=== PATIENT | male | born 1945 | race Asian ===

== ENCOUNTER 2017-10-16 18:49 | Inpatient (IN) | payer MEDICAID, MEDICARE, OTHER ==
[~2017-10-16] VITALS: Ht 167.6 cm; Wt 55.3 kg
[~2017-10-16 18:49] MED LIST: ASPI-1159 PO; CLOP75TA33 PO; METO-385 PO; ROSU10TA PO
[2017-10-16 21:33] LABS: BASOPHILS % 0.2 % (0.0-2.0); EOSINOPHILS % 0.2 % (0.0-5.0); HEMATOCRIT. 43.4 % (42.0-52.0); HEMOGLOBIN. 14.6 g/dL (14.0-18.0); LYMPHOCYTES % 14.1 % (20.0-50.0); MEAN CORPUSCULAR HEMOGLOBIN 29.4 pg (28.0-32.0); MEAN CORPUSCULAR VOLUME 87.2 fL (80.0-94.0); MEAN PLATELET VOLUME 8.7 fl (7.4-10.4); MONOCYTES % 11.2 % (2.0-8.0); NEUTROPHILS % 74.3 % (40.0-76.0); PLATELET 218 x1000/uL (130-400); RED BLOOD CELL COUNT 4.97 mill/uL (4.7-6.1); RED CELL DISTRIBUTION WIDTH 13.4 % (11.6-14.6)
[2017-10-16 21:39] LABS: CHLORIDE 98 mEq/L (98-107)
[2017-10-16 21:42] LABS: PROTHROMBIN TIME 10.4 sec (9.1-11.1)
[2017-10-16 22:44] LABS: CLARITY URINE CLEAR (CLEAR); COLOR URINE YELLOW (YELLOW); KETONES URINE TRACE (NEGATIVE); LEUKOCYTE ESTERASE URINE NEGATIVE (NEGATIVE); NITRITE URINE NEGATIVE (NEGATIVE); OCCULT BLOOD URINE 1+ (NEGATIVE); PROTEIN URINE 1+ (NEGATIVE)
[2017-10-16] MEDS ORDERED: ASPIRIN 325MG EC TABLET PO NR (22:45)
[2017-10-16] MEDS ORDERED: MORPHINE SULFATE 4 MG/ML CPJ (NOT FOR IM USE) IV NR (22:45)
[2017-10-16] MEDS ORDERED: ENOXAPARIN 60MG/0.6ML SYR SUBCUT NR (23:00)
[2017-10-17] MEDS: DIPHENHYDRAMINE HCL/ZINC ACET 28 GM CREAM TOP SCH
[2017-10-17 03:45] VITALS: BP 118/58
[2017-10-17 04:29] VITALS: BP 118/58
[2017-10-17] MEDS ORDERED: ONDANSETRON HCL 4MG/2ML INJ IV PRN (06:00)
[2017-10-17] MEDS ORDERED: MAGNESIUM/ALUMINUM HYDROXIDE/SIMETHICONE 30ML UDC PO PRN (06:00)
[2017-10-17] MEDS ORDERED: GUAIFENESIN 200MG/10ML SUGAR FREE UDC PO PRN (06:00)
[2017-10-17] MEDS ORDERED: DIPHENHYDRAMINE 50MG/ML VIAL IV PRN (06:00)
[2017-10-17] MEDS ORDERED: LORAZEPAM 2MG/ML CPJ IV PRN (06:00)
[2017-10-17] MEDS ORDERED: CLONIDINE 0.1MG TABLET PO PRN (06:00)
[2017-10-17] MEDS ORDERED: IPRATROPIUM/ALBUTEROL 0.5-3(2.5)MG/3ML NEB INH PRN (06:00)
[2017-10-17] MEDS ORDERED: DOCUSATE SODIUM 100MG CAPSULE PO PRN (06:00)
[2017-10-17] MEDS ORDERED: NA PHOS,M-B/NA PHOS,DI-BA ENEMA 118ML PR PRN (06:00)
[2017-10-17] MEDS ORDERED: ACETAMINOPHEN 325MG TABLET PO PRN (06:00)
[2017-10-17] MEDS: MORPHINE SULFATE 4 MG/ML CPJ (NOT FOR IM USE) IV PRN ×4 (06:24→21:14)
[2017-10-17 08:00] VITALS: BP 149/62
[2017-10-17] MEDS ORDERED: ASPIRIN 81MG EC TABLET PO SCH (09:00)
[2017-10-17 09:03] LABS: CHLORIDE 101 mEq/L (98-107)
[2017-10-17] MEDS ORDERED: INFLUENZA VIRUS VACCINE 0.5ML SYR IM ONE (10:00)
[2017-10-17 12:00] VITALS: BP 146/56
[2017-10-17 16:00] VITALS: BP 138/46
[2017-10-17 16:07] LABS: T4 FREE 1.3 ng/dL (0.76-1.46)
[2017-10-17 16:08] LABS: CREATINE KINASE MB FRACTION 4.9 ng/mL (0.5-3.6)
[2017-10-17 20:00] VITALS: BP 136/50
[2017-10-17] MEDS ORDERED: CLOPIDOGREL 75MG TABLET PO NR ×2 (20:30→21:45)
[2017-10-17] MEDS: ATORVASTATIN CALCIUM 20MG TABLET PO SCH (21:12)
[2017-10-17] MEDS: CARVEDILOL 3.125 MG TABLET PO SCH (21:13)
[2017-10-17] MEDS: HYDROCODONE/ACETAMINOPHEN 5/325MG TABLET PO PRN (21:14)
[2017-10-17] MEDS ORDERED: ENOXAPARIN 40MG/0.4ML SYR SUBCUT SCH (23:00)
[2017-10-18] VITALS: BP 160/60
[2017-10-18 00:55] LABS: CREATINE KINASE MB FRACTION 3.2 ng/mL (0.5-3.6)
[2017-10-18] MEDS: MORPHINE SULFATE 4 MG/ML CPJ (NOT FOR IM USE) IV PRN (03:00)
[2017-10-18 04:00] VITALS: BP 131/61
[2017-10-18 05:12] LABS: BASOPHILS % 0.4 % (0.0-2.0); EOSINOPHILS % 0.6 % (0.0-5.0); HEMATOCRIT. 41.5 % (42.0-52.0); HEMOGLOBIN. 14.2 g/dL (14.0-18.0); MEAN CORPUSCULAR HEMOGLOBIN 29.9 pg (28.0-32.0); MEAN CORPUSCULAR VOLUME 87.3 fL (80.0-94.0); MEAN PLATELET VOLUME 9.1 fl (7.4-10.4); MONOCYTES % 12.6 % (2.0-8.0); NEUTROPHILS % 59.4 % (40.0-76.0); PLATELET 204 x1000/uL (130-400); RED BLOOD CELL COUNT 4.76 mill/uL (4.7-6.1); RED CELL DISTRIBUTION WIDTH 13.3 % (11.6-14.6)
[2017-10-18 06:31] LABS: CHLORIDE 99 mEq/L (98-107)
[2017-10-18 06:44] LABS: CREATINE KINASE 839 IU/L (39-308); LDL CHOLESTEROL 71 mg/dL (5-100)
[2017-10-18 06:45] LABS: HDL CHOLESTEROL 51 mg/dL (40-59)
[2017-10-18 06:48] LABS: CREATINE KINASE MB FRACTION 2.9 ng/mL (0.5-3.6)
[2017-10-18] MEDS: HYDROCODONE/ACETAMINOPHEN 5/325MG TABLET PO PRN ×4 (07:40→22:11)
[2017-10-18 08:00] VITALS: BP 149/62
[2017-10-18] MEDS ORDERED: ASPIRIN 81MG TABLET PO SCH (09:00)
[2017-10-18] MEDS ORDERED: CLOPIDOGREL 75MG TABLET PO SCH (09:00)
[2017-10-18] MEDS: CARVEDILOL 3.125 MG TABLET PO SCH ×2 (10:08→20:44)
[2017-10-18] MEDS: DIPHENHYDRAMINE HCL/ZINC ACET 28 GM CREAM TOP SCH ×2 (10:08→17:51)
[2017-10-18 12:00] VITALS: BP 135/50
[2017-10-18] MEDS: PIPERACILLIN/TAZ 3.375G PREMIX 50 ML IV SCH ×3 (12:37→23:53)
[2017-10-18] MEDS: VANCOMYCIN 1 G PREMIX 200 ML IV SCH (13:26)
[2017-10-18 16:00] VITALS: BP 121/41
[2017-10-18 20:00] VITALS: BP 147/60
[2017-10-18] MEDS: ATORVASTATIN CALCIUM 20MG TABLET PO SCH (20:43)
[2017-10-19] VITALS: BP 126/47
[2017-10-19 04:00] VITALS: BP 127/46
[2017-10-19] MEDS: HYDROCODONE/ACETAMINOPHEN 5/325MG TABLET PO PRN ×3 (04:38→16:50)
[2017-10-19] MEDS: PIPERACILLIN/TAZ 3.375G PREMIX 50 ML IV SCH ×3 (04:43→19:59)
[2017-10-19] MEDS: VANCOMYCIN 1 G PREMIX 200 ML IV SCH ×2 (05:24→23:42)
[2017-10-19 08:00] VITALS: BP 148/53
[2017-10-19] MEDS: DIPHENHYDRAMINE HCL/ZINC ACET 28 GM CREAM TOP SCH ×2 (09:19→17:00)
[2017-10-19] MEDS: CARVEDILOL 3.125 MG TABLET PO SCH ×2 (09:20→20:47)
[2017-10-19] MEDS ORDERED: IPRATROPIUM/ALBUTEROL 0.5-3(2.5)MG/3ML NEB HHN PRN (11:15)
[2017-10-19 12:00] VITALS: BP 135/53
[2017-10-19] MEDS: IPRATROPIUM/ALBUTEROL 0.5-3(2.5)MG/3ML NEB HHN SCH ×2 (14:40→21:15)
[2017-10-19 16:00] VITALS: BP 145/51
[2017-10-19 20:00] VITALS: BP 164/65
[2017-10-19] MEDS: ATORVASTATIN CALCIUM 20MG TABLET PO SCH (20:47)
[2017-10-20] VITALS: BP 124/55
[2017-10-20] MEDS: PIPERACILLIN/TAZ 3.375G PREMIX 50 ML IV SCH ×4 (01:11→22:06)
[2017-10-20] MEDS: IPRATROPIUM/ALBUTEROL 0.5-3(2.5)MG/3ML NEB HHN SCH ×5 (01:31→21:23)
[2017-10-20 04:00] VITALS: BP_SYST 125; BP_SYST 132; BP_DIAS 52; BP_DIAS 53
[2017-10-20 08:00] VITALS: BP 121/63
[2017-10-20] MEDS: CARVEDILOL 3.125 MG TABLET PO SCH ×2 (09:52→21:02)
[2017-10-20] MEDS: DIPHENHYDRAMINE HCL/ZINC ACET 28 GM CREAM TOP SCH ×2 (09:53→20:10)
[2017-10-20 12:00] VITALS: BP 137/64
[2017-10-20 16:00] VITALS: BP 190/68
[2017-10-20 20:00] VITALS: BP 148/56
[2017-10-20] MEDS: VANCOMYCIN 1 G PREMIX 200 ML IV SCH (20:10)
[2017-10-20] MEDS: ATORVASTATIN CALCIUM 20MG TABLET PO SCH (21:02)
[2017-10-21] VITALS: BP 145/35
[2017-10-21] MEDS: PIPERACILLIN/TAZ 3.375G PREMIX 50 ML IV SCH ×5 (00:35→23:55)
[2017-10-21 04:00] VITALS: BP 133/45
[2017-10-21] MEDS: IPRATROPIUM/ALBUTEROL 0.5-3(2.5)MG/3ML NEB HHN SCH ×4 (05:07→20:50)
[2017-10-21 06:32] LABS: CHLORIDE 103 mEq/L (98-107)
[2017-10-21 08:00] VITALS: BP 155/61
[2017-10-21] MEDS: CARVEDILOL 3.125 MG TABLET PO SCH ×2 (09:40→20:41)
[2017-10-21] MEDS: DIPHENHYDRAMINE HCL/ZINC ACET 28 GM CREAM TOP SCH ×2 (09:40→18:07)
[2017-10-21] MEDS: VANCOMYCIN 1 G PREMIX 200 ML IV SCH (12:54)
[2017-10-21 16:00] VITALS: BP 164/70
[2017-10-21 20:00] VITALS: BP 132/46
[2017-10-21] MEDS: ATORVASTATIN CALCIUM 20MG TABLET PO SCH (20:41)
[2017-10-21] MEDS: DICLOFENAC SODIUM 75MG DR (EC) TABLET PO SCH (20:41)
[2017-10-22] VITALS: BP 126/45
[2017-10-22] MEDS: IPRATROPIUM/ALBUTEROL 0.5-3(2.5)MG/3ML NEB HHN SCH ×2 (02:13→07:48)
[2017-10-22 04:00] VITALS: BP 116/49
[2017-10-22] MEDS: PIPERACILLIN/TAZ 3.375G PREMIX 50 ML IV SCH ×2 (05:19→12:20)
[2017-10-22] MEDS: VANCOMYCIN 1 G PREMIX 200 ML IV SCH (06:20)
[2017-10-22 08:00] VITALS: BP 133/57
[2017-10-22] MEDS: DICLOFENAC SODIUM 75MG DR (EC) TABLET PO SCH (08:35)
[2017-10-22] MEDS: CARVEDILOL 3.125 MG TABLET PO SCH (08:35)
[2017-10-22] MEDS: DIPHENHYDRAMINE HCL/ZINC ACET 28 GM CREAM TOP SCH (08:36)
[2017-10-22 09:06] LABS: COMPLEMENT C3 111 mg/dL (82-167)
[2017-10-22 11:34] VITALS: BP 144/59
[2017-10-22 12:00] VITALS: BP 144/59
[2017-10-22 17:06] LABS: ANTI-NUCLEAR ANTIBODIES DIRECT Negative (Negative)
[2017-10-24 09:06] LABS: ANTI-MYELOPEROXIDASE AB < 9.0 U/mL (0.0-9.0); ANTI-PROTEINASE 3 ABS < 3.5 U/mL (0.0-3.5)
[2017-10-24 14:18] LABS: ATYPICAL P-ANCA <1:20 titer (Neg:<1:20); CYTOPLASMIC C-ANCA <1:20 titer (Neg:<1:20); PERINUCLEAR P-ANCA <1:20 titer (Neg:<1:20)
== END 2017-10-22 13:56 | disposition home or self-care (01) | DRG 553 ==
LOC: ER 20:38 → 5WST 10-17 01:36 → ENRESERV 10-17 02:19
PROVIDERS: ADMIT Internal Medicine; ATTEND Internal Medicine
PROC: 0S9C3ZZ Drainage of Right Knee Joint, Percutaneous Approach (ICD-10-PCS; principal; 2017-10-19)
DX: M11.861 Other specified crystal arthropathies, right knee (principal); I21.4 Non-ST elevation (NSTEMI) myocardial infarction; I73.9 Peripheral vascular disease, unspecified; I25.10 Atherosclerotic heart disease of native coronary artery without angina pectoris; Z95.1 Presence of aortocoronary bypass graft; E78.5 Hyperlipidemia, unspecified; I11.0 Hypertensive heart disease with heart failure; I50.9 Heart failure, unspecified; J44.9 Chronic obstructive pulmonary disease, unspecified; M17.11 Unilateral primary osteoarthritis, right knee; K59.00 Constipation, unspecified; F41.9 Anxiety disorder, unspecified; M25.462 Effusion, left knee; M25.461 Effusion, right knee; Z79.82 Long term (current) use of aspirin; Z95.5 Presence of coronary angioplasty implant and graft; Z79.899 Other long term (current) drug therapy
CPT/HCPCS: 20611; 36415; 71045; 73562; 78582; 80048; 80053; 80061; 80202; 81003; 82550; 82553; 83036; 83520; 83880; 84439; 84443; 84484; 84550; 85025; 85379; 85610; 85651; 86038; 86160; 86256; 86431; 87070; 87205; 89060; 90686; 93005; 93306; 93970; 94640; 96372; 96374; 97116; 97162; 97165; 97530; 99285; A9558; J1200; J1650; J2270; J2543; J3370; J7050; J7620

== ENCOUNTER 2017-12-25 16:20 | Inpatient (IN) | payer MEDICARE ==
[~2017-12-25] VITALS: Ht 157.5 cm; Wt 52.6 kg
[2017-12-25] MEDS ORDERED: CLINDAMYCIN 600 MG in DEXTROSE 5% WATER 50 ML IV ONE (17:45)
[2017-12-25] MEDS ORDERED: DIPHENHYDRAMINE 50MG/ML VIAL IV ONE (18:15)
[2017-12-25 18:17] LABS: CHLORIDE 101 mEq/L (98-107)
[2017-12-25 18:18] LABS: BASOPHILS % 0.4 % (0.0-2.0); EOSINOPHILS % 9.5 % (0.0-5.0); HEMATOCRIT. 42.4 % (42.0-52.0); HEMOGLOBIN. 14.3 g/dL (14.0-18.0); LYMPHOCYTES % 17.5 % (20.0-50.0); MEAN CORPUSCULAR HEMOGLOBIN 29.7 pg (28.0-32.0); MEAN CORPUSCULAR VOLUME 87.8 fL (80.0-94.0); MEAN PLATELET VOLUME 8.6 fl (7.4-10.4); MONOCYTES % 9.3 % (2.0-8.0); NEUTROPHILS % 63.3 % (40.0-76.0); PLATELET 281 x1000/uL (130-400); RED BLOOD CELL COUNT 4.83 mill/uL (4.7-6.1); RED CELL DISTRIBUTION WIDTH 13.1 % (11.6-14.6)
[2017-12-25 18:20] LABS: INR 1.1; PROTHROMBIN TIME 10.6 sec (9.1-11.1)
[2017-12-25 19:33] LABS: CLARITY URINE CLEAR (CLEAR); COLOR URINE AMBER (YELLOW); KETONES URINE 1+ (NEGATIVE); LEUKOCYTE ESTERASE URINE NEGATIVE (NEGATIVE); NITRITE URINE NEGATIVE (NEGATIVE); OCCULT BLOOD URINE NEGATIVE (NEGATIVE); PH URINE 5.5 (4.5-8.0); PROTEIN URINE 1+ (NEGATIVE); SPECIFIC GRAVITY URINE 1.029 (1.005-1.030)
[2017-12-25 19:59] LABS: *COCAINE SCREEN URINE NEGATIVE (NEGATIVE)
[2017-12-25 20:00] LABS: *AMPHETAMINES SCREEN URINE NEGATIVE (NEGATIVE); *BARBITURATES SCREEN URINE NEGATIVE (NEGATIVE); *BENZODIAZEPINES SCREEN URINE NEGATIVE (NEGATIVE); CANNABINOID URINE SCREEN NEGATIVE (NEGATIVE); METHADONE URINE SCREEN NEGATIVE (NEGATIVE); OPIATES URINE SCREEN NEGATIVE (NEGATIVE); PHENCYCLIDINE URINE SCREEN NEGATIVE (NEGATIVE)
[2017-12-25 23:20] VITALS: BP 116/45
[2017-12-26] MEDS ORDERED: CLINDAMYCIN 600 MG in DEXTROSE 5% WATER 50 ML IV SCH (00:15)
[2017-12-26] MEDS: CLINDAMYCIN 600 MG in SODIUM CHLORIDE 0.9% 50 ML IV SCH ×3 (03:46→18:03)
[2017-12-26] MEDS: DIPHENHYDRAMINE 50MG CAPSULE PO PRN ×2 (03:46→15:54)
[2017-12-26 04:00] VITALS: BP 117/46
[2017-12-26 08:00] VITALS: BP 102/41
[2017-12-26] MEDS: METOPROLOL TARTRATE 50MG TABLET PO SCH ×2 (08:23→20:45)
[2017-12-26] MEDS: CLOPIDOGREL 75MG TABLET PO SCH (09:00)
[2017-12-26] MEDS: ASPIRIN 81MG TABLET PO SCH (09:01)
[2017-12-26 12:00] VITALS: BP 115/46
[2017-12-26 15:32] VITALS: BP 106/45
[2017-12-26] MEDS: DIPHENHYDRAMINE HCL/ZINC ACET 28 GM CREAM TOP SCH (18:03)
[2017-12-26 20:00] VITALS: BP 120/50
[2017-12-27] VITALS: BP 117/48
[2017-12-27] MEDS: CLINDAMYCIN 600 MG in SODIUM CHLORIDE 0.9% 50 ML IV SCH ×3 (01:48→17:49)
[2017-12-27 04:00] VITALS: BP 107/49
[2017-12-27 07:52] LABS: BASOPHILS % 0.4 % (0.0-2.0); EOSINOPHILS % 14.8 % (0.0-5.0); HEMATOCRIT. 37.1 % (42.0-52.0); HEMOGLOBIN. 12.6 g/dL (14.0-18.0); LYMPHOCYTES % 21.3 % (20.0-50.0); MEAN CORPUSCULAR HEMOGLOBIN 29.7 pg (28.0-32.0); MEAN CORPUSCULAR VOLUME 87.5 fL (80.0-94.0); MEAN PLATELET VOLUME 8.7 fl (7.4-10.4); MONOCYTES % 9.7 % (2.0-8.0); NEUTROPHILS % 53.8 % (40.0-76.0); PLATELET 237 x1000/uL (130-400); RED BLOOD CELL COUNT 4.24 mill/uL (4.7-6.1); RED CELL DISTRIBUTION WIDTH 13.5 % (11.6-14.6)
[2017-12-27 08:00] VITALS: BP 114/47
[2017-12-27 08:02] LABS: CHLORIDE 105 mEq/L (98-107)
[2017-12-27] MEDS: CLOPIDOGREL 75MG TABLET PO SCH (10:00)
[2017-12-27] MEDS: METOPROLOL TARTRATE 50MG TABLET PO SCH ×2 (10:00→20:38)
[2017-12-27] MEDS: ASPIRIN 81MG TABLET PO SCH (10:00)
[2017-12-27] MEDS: HYDROCODONE/ACETAMINOPHEN 5/325MG TABLET PO PRN ×2 (10:01→18:40)
[2017-12-27] MEDS: DIPHENHYDRAMINE HCL/ZINC ACET 28 GM CREAM TOP SCH ×2 (10:04→16:46)
[2017-12-27 12:00] VITALS: BP 113/49
[2017-12-27 20:00] VITALS: BP 142/54
[2017-12-27] MEDS: DIPHENHYDRAMINE 50MG CAPSULE PO PRN (20:38)
[2017-12-27] MEDS: HYDROXYZINE 25MG TABLET PO SCH (22:22)
[2017-12-28] VITALS: BP 124/51
[2017-12-28 04:04] VITALS: BP 123/60
[2017-12-28] MEDS: HYDROXYZINE 25MG TABLET PO SCH ×2 (04:06→11:53)
[2017-12-28] MEDS: DIPHENHYDRAMINE 50MG CAPSULE PO PRN (11:36)
[2017-12-28] MEDS: CLOPIDOGREL 75MG TABLET PO SCH (11:37)
[2017-12-28] MEDS: ASPIRIN 81MG TABLET PO SCH (11:37)
[2017-12-28] MEDS: METOPROLOL TARTRATE 50MG TABLET PO SCH (11:38)
[2017-12-28 13:10] LABS: HIV SCREEN 4G Non Reactive (Non Reactive)
[2017-12-28] MEDS ORDERED: TRIAMCINOLONE ACETONIDE 0.5% OINT 15GM TOP SCH (16:00)
[2017-12-28] MEDS ORDERED: CELECOXIB 200MG CAPSULE PO SCH (16:00)
[2017-12-28] MEDS ORDERED: MINERAL OIL/PETROLATUM,WHITE CREAM 113GM JAR TOP SCH (16:00)
[2017-12-28 18:42] VITALS: BP 144/40
[2017-12-28] MEDS ORDERED: METHYLPREDNISOLONE SOD SUCC 40 MG/ML VIAL IV SCH (22:00)
[2017-12-30 19:09] LABS: ANTI-JO 1 ABS <0.2 AI (0.0-0.9)
[2017-12-31 04:09] LABS: OVA & PARASITE EXAM Final report (.)
[2018-01-01 15:10] LABS: CYC CITRULLINATED PEP IgG/IgA 6 units (0-19)
[2018-01-02 09:06] LABS: ALDOLASE 4.7 U/L (3.3-10.3); GLOMERULAR BASEMENT MEMB AB 4 units (0-20)
[2018-01-02 17:06] LABS: ANA IFA Negative (.)
[2018-01-03 06:24] LABS: COMPLEMENT C3 130 mg/dL (82-167)
[2018-01-03 10:10] LABS: HLA B27 DISEASE ASSOCIATION Negative (.)
== END 2017-12-28 19:00 | disposition home or self-care (01) | DRG 607 ==
LOC: ER 18:04 → 8WST 20:26 → EDBEDREQTM 20:37 → EDBEDREQ 20:37 → ENRESERV 22:21
PROVIDERS: ADMIT Internal Medicine; ATTEND Internal Medicine
DX: R21 Rash and other nonspecific skin eruption (principal); I25.10 Atherosclerotic heart disease of native coronary artery without angina pectoris; D72.1 Eosinophilia; I10 Essential (primary) hypertension; R23.4 Changes in skin texture; R23.3 Spontaneous ecchymoses; M17.0 Bilateral primary osteoarthritis of knee; M19.012 Primary osteoarthritis, left shoulder; M19.011 Primary osteoarthritis, right shoulder; M19.022 Primary osteoarthritis, left elbow; M19.021 Primary osteoarthritis, right elbow; E78.5 Hyperlipidemia, unspecified; Z95.1 Presence of aortocoronary bypass graft
CPT/HCPCS: 36415; 71250; 74176; 80048; 80305; 82085; 82550; 84550; 85651; 86140; 86160; 86200; 86235; 86256; 86431; 86780; 87177; 87186; 87209; 87389; 93005; 96365; 96375; 99285; J1200; J3490; J7050; J7060; Q0163

== ENCOUNTER 2021-07-28 00:30 | Inpatient (IN) | payer MEDICARE, MEDICAID ==
[~2021-07-28] VITALS: Ht 167.6 cm; Wt 61.2 kg
[~2021-07-28 00:30] MED LIST changes: -ASPI-1159 PO; +ASPI-1497 PO; +CARV3.1242 PO; +CRES10 PO; +DOCU-138 PO; +FURO-152 MT; -ROSU10TA PO
[2021-07-28 01:26] LABS: BASOPHILS % 0.5 % (0.0-2.0); EOSINOPHILS % 1.9 % (0.0-5.0); HEMATOCRIT. 37.6 % (42.0-52.0); HEMOGLOBIN. 12.3 g/dL (14.0-18.0); LYMPHOCYTES % 27.6 % (20.0-50.0); MEAN CORPUSCULAR HEMOGLOBIN 28.9 pg (28.0-32.0); MEAN CORPUSCULAR VOLUME 88.8 fL (80.0-94.0); MEAN PLATELET VOLUME 8.4 fl (7.4-10.4); MONOCYTES % 8.5 % (2.0-8.0); NEUTROPHILS % 61.5 % (40.0-76.0); PLATELET 253 x1000/uL (130-400); RED BLOOD CELL COUNT 4.24 mill/uL (4.7-6.1); RED CELL DISTRIBUTION WIDTH 13.5 % (11.6-14.6)
[2021-07-28 01:33] LABS: CHLORIDE 104 mEq/L (98-107)
[2021-07-28] MEDS ORDERED: GUAIFENESIN 200MG/10ML SUGAR FREE UDC PO PRN (07:00)
[2021-07-28] MEDS ORDERED: KETOROLAC 15MG/ML VIAL IV PRN (07:00)
[2021-07-28] MEDS ORDERED: MAGNESIUM/ALUMINUM HYDROXIDE/SIMETHICONE 30ML UDC PO PRN (07:00)
[2021-07-28] MEDS ORDERED: IPRATROPIUM/ALBUTEROL 0.5-3(2.5)MG/3ML NEB NEB PRN (07:00)
[2021-07-28] MEDS ORDERED: ENOXAPARIN 40MG/0.4ML SYR SUBCUT SCH (07:00)
[2021-07-28] MEDS ORDERED: CLONIDINE 0.1MG TABLET PO PRN (07:00)
[2021-07-28] MEDS ORDERED: ONDANSETRON HCL 4MG/2ML INJ IV PRN (07:00)
[2021-07-28] MEDS ORDERED: ACETAMINOPHEN 325MG TABLET PO PRN ×2 (07:00)
[2021-07-28] MEDS ORDERED: NITROGLYCERIN 0.4MG TABLET SL SL PRN (07:00)
[2021-07-28 08:04] LABS: VITAMIN B12 SERUM 679 pg/mL (211-911)
[2021-07-28] MEDS ORDERED: PROT40 MT (08:54)
[2021-07-28] MEDS ORDERED: DIGO125T80 MT (08:56)
[2021-07-28] MEDS: ENOXAPARIN 30MG/0.3ML SYR SUBCUT SCH (09:52)
[2021-07-28] MEDS: ASPIRIN 81MG EC TABLET PO SCH (09:52)
[2021-07-28] MEDS: CLOPIDOGREL 75MG TABLET PO SCH (09:53)
[2021-07-28] MEDS: LISINOPRIL 20MG TABLET PO SCH ×2 (09:53→22:13)
[2021-07-28] MEDS: DOCUSATE SODIUM 100MG CAPSULE PO PRN (09:53)
[2021-07-28] MEDS: FAMOTIDINE 20MG TABLET PO SCH (09:53)
[2021-07-28] MEDS: METOPROLOL TARTRATE 25MG TABLET PO SCH ×2 (09:54→22:13)
[2021-07-28 12:00] VITALS: BP 158/46
[2021-07-28 13:26] VITALS: BP 162/45
[2021-07-28 16:28] LABS: CREATINE KINASE MB FRACTION 3.8 ng/mL (0.5-3.6)
[2021-07-28 16:30] VITALS: BP 138/61
[2021-07-28 20:00] VITALS: BP 138/71
[2021-07-28] MEDS ORDERED: ZOLPIDEM TARTRATE 5MG TABLET PO PRN (21:00)
[2021-07-28] MEDS: ATORVASTATIN CALCIUM 20MG TABLET PO SCH (22:13)
[2021-07-28 23:26] LABS: CREATINE KINASE MB FRACTION 4.2 ng/mL (0.5-3.6)
[2021-07-29] VITALS: BP 139/73
[2021-07-29 03:36] VITALS: BP 142/75
[2021-07-29 07:20] LABS: BASOPHILS % 0.4 % (0.0-2.0); EOSINOPHILS % 1.5 % (0.0-5.0); HEMATOCRIT. 36.7 % (42.0-52.0); HEMOGLOBIN. 12.3 g/dL (14.0-18.0); LYMPHOCYTES % 14.2 % (20.0-50.0); MEAN CORPUSCULAR HEMOGLOBIN 29.5 pg (28.0-32.0); MEAN CORPUSCULAR VOLUME 88.2 fL (80.0-94.0); MEAN PLATELET VOLUME 8.9 fl (7.4-10.4); MONOCYTES % 6.3 % (2.0-8.0); NEUTROPHILS % 77.6 % (40.0-76.0); PLATELET 242 x1000/uL (130-400); RED BLOOD CELL COUNT 4.16 mill/uL (4.7-6.1); RED CELL DISTRIBUTION WIDTH 12.9 % (11.6-14.6)
[2021-07-29 07:36] LABS: CHLORIDE 105 mEq/L (98-107); HDL CHOLESTEROL 57 mg/dL (40-59); LDL CHOLESTEROL 42 mg/dL (5-100); PHOSPHORUS 3.5 mg/dL (2.5-4.9)
[2021-07-29 08:00] VITALS: BP 188/78
[2021-07-29] MEDS: ASPIRIN 81MG EC TABLET PO SCH (09:45)
[2021-07-29] MEDS: CLOPIDOGREL 75MG TABLET PO SCH (09:46)
[2021-07-29] MEDS: FAMOTIDINE 20MG TABLET PO SCH (09:46)
[2021-07-29] MEDS: METOPROLOL TARTRATE 25MG TABLET PO SCH ×2 (09:46→21:14)
[2021-07-29] MEDS: LISINOPRIL 20MG TABLET PO SCH ×2 (09:46→21:14)
[2021-07-29] MEDS: ENOXAPARIN 30MG/0.3ML SYR SUBCUT SCH (09:47)
[2021-07-29 12:00] VITALS: BP 130/41
[2021-07-29 16:00] VITALS: BP 127/48
[2021-07-29 20:00] VITALS: BP 161/54
[2021-07-29] MEDS: ATORVASTATIN CALCIUM 20MG TABLET PO SCH (21:14)
[2021-07-29] MEDS: AMLODIPINE 2.5MG TABLET PO SCH (23:44)
[2021-07-30] VITALS: BP 161/61
[2021-07-30 04:00] VITALS: BP 164/71
[2021-07-30 08:00] VITALS: BP 140/57
[2021-07-30] MEDS: FAMOTIDINE 20MG TABLET PO SCH (10:02)
[2021-07-30] MEDS: LISINOPRIL 20MG TABLET PO SCH ×2 (10:03→20:58)
[2021-07-30] MEDS: METOPROLOL TARTRATE 50MG TABLET PO SCH ×2 (10:03→20:58)
[2021-07-30] MEDS: AMLODIPINE 2.5MG TABLET PO SCH (10:03)
[2021-07-30] MEDS: ENOXAPARIN 30MG/0.3ML SYR SUBCUT SCH (10:04)
[2021-07-30 12:00] VITALS: BP 111/53
[2021-07-30 12:25] LABS: PROTHROMBIN TIME 11.2 sec (9.6-11.0)
[2021-07-30 16:00] VITALS: BP 130/49
[2021-07-30 20:00] VITALS: BP 130/45
[2021-07-30] MEDS: ATORVASTATIN CALCIUM 20MG TABLET PO SCH (20:58)
[2021-07-31] VITALS: BP 110/41
[2021-07-31 04:00] VITALS: BP 162/43
[2021-07-31 08:00] VITALS: BP 165/41
[2021-07-31] MEDS: ENOXAPARIN 30MG/0.3ML SYR SUBCUT SCH (09:40)
[2021-07-31] MEDS: AMLODIPINE 2.5MG TABLET PO SCH (09:41)
[2021-07-31] MEDS: FAMOTIDINE 20MG TABLET PO SCH (09:41)
[2021-07-31] MEDS: METOPROLOL TARTRATE 50MG TABLET PO SCH ×2 (09:41→20:48)
[2021-07-31] MEDS: LISINOPRIL 20MG TABLET PO SCH ×2 (09:41→20:47)
[2021-07-31 12:00] VITALS: BP 132/40
[2021-07-31 16:00] VITALS: BP 137/45
[2021-07-31 20:00] VITALS: BP 131/40
[2021-07-31] MEDS: ATORVASTATIN CALCIUM 20MG TABLET PO SCH (20:47)
[2021-08-01] VITALS: BP 117/44
[2021-08-01 04:00] VITALS: BP 121/30
[2021-08-01 08:05] VITALS: BP 129/33
[2021-08-01] MEDS: FAMOTIDINE 20MG TABLET PO SCH (09:15)
[2021-08-01] MEDS: LISINOPRIL 20MG TABLET PO SCH ×2 (09:15→21:17)
[2021-08-01] MEDS: AMLODIPINE 2.5MG TABLET PO SCH (09:15)
[2021-08-01] MEDS: METOPROLOL TARTRATE 50MG TABLET PO SCH ×2 (09:16→21:17)
[2021-08-01] MEDS: ENOXAPARIN 30MG/0.3ML SYR SUBCUT SCH (09:16)
[2021-08-01 12:20] VITALS: BP 103/33
[2021-08-01 16:20] VITALS: BP 118/39
[2021-08-01 20:00] VITALS: BP 129/33
[2021-08-01] MEDS: ATORVASTATIN CALCIUM 20MG TABLET PO SCH (21:17)
[2021-08-02] VITALS: BP 141/37
[2021-08-02 04:00] VITALS: BP 153/39
[2021-08-02 08:00] VITALS: BP 151/67
[2021-08-02] MEDS: LISINOPRIL 20MG TABLET PO SCH ×2 (09:58→21:00)
[2021-08-02] MEDS: DOCUSATE SODIUM 100MG CAPSULE PO PRN (09:58)
[2021-08-02] MEDS: FAMOTIDINE 20MG TABLET PO SCH (09:58)
[2021-08-02] MEDS: ENOXAPARIN 30MG/0.3ML SYR SUBCUT SCH (09:58)
[2021-08-02] MEDS: METOPROLOL TARTRATE 50MG TABLET PO SCH ×2 (09:59→21:00)
[2021-08-02] MEDS: AMLODIPINE 2.5MG TABLET PO SCH (10:01)
[2021-08-02 12:00] VITALS: BP 139/41
[2021-08-02 16:00] VITALS: BP 126/73
[2021-08-02 20:00] VITALS: BP 106/70
[2021-08-02] MEDS: ATORVASTATIN CALCIUM 20MG TABLET PO SCH (21:37)
[2021-08-03] VITALS: BP 151/49
[2021-08-03 04:00] VITALS: BP 143/60
[2021-08-03 08:00] VITALS: BP 125/62
[2021-08-03] MEDS: FAMOTIDINE 20MG TABLET PO SCH (10:19)
[2021-08-03] MEDS: LISINOPRIL 20MG TABLET PO SCH ×2 (10:20→21:22)
[2021-08-03] MEDS: AMLODIPINE 2.5MG TABLET PO SCH (10:20)
[2021-08-03] MEDS: METOPROLOL TARTRATE 50MG TABLET PO SCH ×2 (10:21→21:22)
[2021-08-03] MEDS: ENOXAPARIN 30MG/0.3ML SYR SUBCUT SCH (10:21)
[2021-08-03 12:00] VITALS: BP 125/62
[2021-08-03 16:00] VITALS: BP 130/69
[2021-08-03 20:00] VITALS: BP 114/36
[2021-08-03] MEDS: ATORVASTATIN CALCIUM 20MG TABLET PO SCH (21:22)
[2021-08-04] VITALS: BP 119/38
[2021-08-04 04:00] VITALS: BP 123/36
[2021-08-04 08:00] VITALS: BP 126/44
[2021-08-04] MEDS: FAMOTIDINE 20MG TABLET PO SCH (08:57)
[2021-08-04] MEDS: AMLODIPINE 2.5MG TABLET PO SCH (08:58)
[2021-08-04] MEDS: LISINOPRIL 20MG TABLET PO SCH ×2 (08:59→21:45)
[2021-08-04] MEDS: METOPROLOL TARTRATE 50MG TABLET PO SCH ×2 (08:59→21:44)
[2021-08-04] MEDS: ENOXAPARIN 30MG/0.3ML SYR SUBCUT SCH (09:00)
[2021-08-04 12:00] VITALS: BP 120/50
[2021-08-04 16:00] VITALS: BP 126/53
[2021-08-04 20:00] VITALS: BP 153/57
[2021-08-04] MEDS: ATORVASTATIN CALCIUM 20MG TABLET PO SCH (21:44)
[2021-08-05] VITALS: BP 143/62
[2021-08-05 04:00] VITALS: BP 147/57
[2021-08-05 06:44] LABS: HEMATOCRIT 36.7 % (42.0-52.0); HEMOGLOBIN 12.5 g/dL (14.0-18.0); MEAN CORPUSCULAR HEMOGLOBIN 29.6 pg (28.0-32.0); MEAN CORPUSCULAR VOLUME 86.7 fL (80.0-94.0); PLATELET 312 x1000/uL (130-400); RED BLOOD CELL COUNT 4.23 mill/uL (4.7-6.1); RED CELL DISTRIBUTION WIDTH 12.8 % (11.6-14.6)
[2021-08-05 06:58] LABS: CHLORIDE 98 mEq/L (98-107)
[2021-08-05 08:00] VITALS: BP 142/51
[2021-08-05] MEDS ORDERED: ENOXAPARIN 40MG/0.4ML SYR SUBCUT SCH (09:00)
[2021-08-05] MEDS: FAMOTIDINE 20MG TABLET PO SCH (09:01)
[2021-08-05] MEDS: METOPROLOL TARTRATE 50MG TABLET PO SCH (09:01)
[2021-08-05] MEDS: LISINOPRIL 20MG TABLET PO SCH (09:01)
[2021-08-05] MEDS: AMLODIPINE 2.5MG TABLET PO SCH (09:01)
[2021-08-05 12:00] VITALS: BP 120/41
[2021-08-05 17:41] VITALS: BP 115/61
== END 2021-08-05 18:40 | disposition home health service (06) | DRG 551 ==
LOC: ER 00:30 → 6WST 04:27 → ENRESERV 07:21
PROVIDERS: ADMIT Internal Medicine; ATTEND Internal Medicine
DX: M48.061 Spinal stenosis, lumbar region without neurogenic claudication (principal); G82.50 Quadriplegia, unspecified; I50.33 Acute on chronic diastolic (congestive) heart failure; J44.1 Chronic obstructive pulmonary disease with (acute) exacerbation; K59.2 Neurogenic bowel, not elsewhere classified; I42.9 Cardiomyopathy, unspecified; G95.29 Other cord compression; M48.02 Spinal stenosis, cervical region; I11.0 Hypertensive heart disease with heart failure; D63.8 Anemia in other chronic diseases classified elsewhere; E78.00 Pure hypercholesterolemia, unspecified; I25.10 Atherosclerotic heart disease of native coronary artery without angina pectoris; Z53.29 Procedure and treatment not carried out because of patient's decision for other reasons; G20 Parkinson's disease; R26.9 Unspecified abnormalities of gait and mobility; R33.9 Retention of urine, unspecified; R13.10 Dysphagia, unspecified; N31.9 Neuromuscular dysfunction of bladder, unspecified; R26.2 Difficulty in walking, not elsewhere classified; R62.7 Adult failure to thrive; Z82.49 Family history of ischemic heart disease and other diseases of the circulatory system; Z95.1 Presence of aortocoronary bypass graft; Z74.01 Bed confinement status; Z68.21 Body mass index [BMI] 21.0-21.9, adult; Z99.3 Dependence on wheelchair; Z95.5 Presence of coronary angioplasty implant and graft
CPT/HCPCS: 36415; 70551; 71045; 72128; 72131; 72141; 72146; 72148; 80048; 80053; 80061; 82140; 82550; 82553; 82607; 83036; 83735; 83880; 84100; 84443; 84484; 85025; 85027; 86850; 86900; 92610; 93005; 93970; 97110; 97162; 97166; 97530; 99285; J1650; J1885